=== PATIENT | male | born 2000 | race Caucasian/White ===

== ENCOUNTER 2019-05-05 10:40 | Emergency (ER) | payer OTHER ==
[~2019-05-05] VITALS: Ht 177.8 cm; Wt 52.2 kg
[2019-05-05 10:40] VITALS: BP_SYST 132
== END 2019-05-05 11:02 | disposition left against medical advice (07) ==
LOC: SED 10:40
DX: F41.9 Anxiety disorder, unspecified (principal); F50.2 Bulimia nervosa; R94.31 Abnormal electrocardiogram [ECG] [EKG]
CPT/HCPCS: 99284

== ENCOUNTER 2019-05-14 16:32 | Inpatient (IN) | payer OTHER ==
[~2019-05-14] VITALS: Ht 172.7 cm; Wt 41.7 kg
[2019-05-14 16:45] VITALS: BP_SYST 105
--- NOTE | 2019-05-14 16:45 | NUR ---
Patient to ER bed 8 to gown for evaluation. Side rails up. Report given to JIMMY Elias.
[2019-05-14] MEDS ORDERED: NACL 0.9% 1,000 ML IV ONE (16:56)
--- NOTE | 2019-05-14 17:00 | NUR ---
patient arrived AOx4 with c/o not eating. patient states he hasn't eaten since 04/30. patient was 130 and is less than 100. patient saw a mental health doctor on thursday. patient has a history of mental health for depression and anxiety. patient stated he was telling himself he was eating gross food and then he stopped eating. patient has no known history of eating disorder. patient denies drug use. however, patient has a history of smoking marijuana. no other complaint or injury.
--- NOTE | 2019-05-14 17:00 | NUR ---
md BRENDA Perez at bedside examining patient.
--- NOTE | 2019-05-14 17:18 | NUR ---
# 20 gauge angiocath placed to right forearm. Use of asceptic technique. Opsite placed over site. Blood return noted. Blood for lab drawn from site. Flushed with 10 cc of normal saline. No evidence of infiltration noted. Patient tolerated well.
--- NOTE | 2019-05-14 17:20 | NUR ---
Medicated per MD orders. IVF infusing with no s/s of infiltration at this time. Will cont to monitor
[2019-05-14 17:32] LABS: BILIRUBIN,URINE NEGATIVE (NEGATIVE); BLOOD, URINE NEGATIVE (NEGATIVE); CLARITY/URINE CLEAR (CLEAR); COLOR,URINE YELLOW (YELLOW); GLUCOSE,URINE NEGATIVE (NEGATIVE); KETONES,URINE NEGATIVE (NEGATIVE); LEUKOCYTE ESTERASE ,URINE NEGATIVE (NEGATIVE); NITRITE, URINE NEGATIVE (NEGATIVE); PROTEIN URINE NEGATIVE (NEGATIVE); UROBILINOGEN,URINE 0.2 (0.2-1.0)
[2019-05-14 18:07] LABS: HEMATOCRIT 45.6 % (36-54); HEMOGLOBIN 15.2 g/dL (14.0-18.0); MEAN CORPUSCULAR HEMOGLOBIN 29 pg (27-31); MEAN CORPUSCULAR HGB CONC 33 % (32-36); MEAN CORPUSCULAR VOLUME 88 fL (79.0-98.0); PLATELET COUNT (AUTO) 206 K/uL (130-430); RED BLOOD CELL COUNT(AUTO) 5.18 MIL/uL (4.2-6.2); RED CELL DISTRIBUTION WIDTH 13.5 % (9.0-15.0); WHITE BLOOD COUNT (AUTO) 17.2 K/uL (4.5-11.0)
[2019-05-14 18:18] LABS: CALCIUM 8.2 mg/dL (8.4-11.0); CREATININE 0.8 mg/dL (0.55-1.30); POTASSIUM 4.3 mmol/L (3.5-5.1)
[2019-05-14 18:22] LABS: ALBUMIN 3.5 g/dL (3.4-4.8); TOTAL BILIRUBIN 1.7 mg/dL (0.0-1.0)
[2019-05-14 18:29] LABS: BARBITURATE, URINE NEGATIVE (NEG <=200); BENZODIAZEPINE, URINE POSITIVE (NEG <=150); CANNABINOID, URINE POSITIVE (NEG <=50); COCAINE, URINE NEGATIVE (NEG <=150); METHAMPHETAMINES SCREEN,URINE NEGATIVE (NEG <=500); OPIATE, URINE NEGATIVE (NEG <=100); PHENCYCLIDINE SCREEN,URINE NEGATIVE (NEG <=25); UR TRICYCLIC ANTIDEPRESSANTS NEGATIVE (NEG <=300); URINE AMPHETAMINE NEGATIVE (NEG <=500); URINE METHADONE NEGATIVE (NEG <=200); URINE OXYCODONE SCREEN NEGATIVE (NEG <=100); URINE PROPOXYPHENE SCREEN NEGATIVE (NEG <=300)
[2019-05-14 18:31] LABS: BAND % (MANUAL) 9 % (0-6); BASOPHILS % (MANUAL) 0 % (0-2); EOSINOPHILS % (MANUAL) 0 % (0-7); LYMPHOCYTES % (MANUAL) 7 % (20-46); MONOCYTES % (MANUAL) 7 % (0-11)
[2019-05-14] MEDS ORDERED: ALPR1TAB2 PO (18:40)
[2019-05-14] MEDS ORDERED: NACL 0.9% 2,000 ML IV ONE (18:45)
[2019-05-14] MEDS ORDERED: FOLIC ACID 1 MG, THIAMINE HCL 100 MG, MAGNESIUM SULFATE 1 GM, MVI 10 ML in NACL 0.9% 1,... IV ONE (18:45)
[2019-05-14] MEDS ORDERED: MAGNESIUM SULFATE 1 GM/2 ML VIAL ONE (19:07)
[2019-05-14] MEDS ORDERED: THIAMINE HCL 100 MG/ML VIAL ONE (19:07)
[2019-05-14] MEDS ORDERED: FOLIC ACID 5 MG/ML VIAL IV ONE (19:07)
[2019-05-14] MEDS ORDERED: LEVOFLOXACIN 500 MG/D5W 100 ML IV ONE (19:15)
--- NOTE | 2019-05-14 19:38 | NUR ---
# 18 gauge angiocath placed to LT AC. Use of asceptic technique. Opsite placed over site. Blood return noted. Blood for lab drawn from site. Flushed with 10 cc of normal saline. No evidence of infiltration noted. Patient tolerated well.
--- NOTE | 2019-05-14 19:46 | NUR ---
Patient will be admitted to care [facility]. Admitted to Med/Surg unit. Will go to room 125B. Belongings list completed. Summary report printed. Report will be given at bedside.
--- NOTE | 2019-05-14 19:52 | NUR ---
ADMIT NOTE Received pt from ER to the floor with a diagnosis of DEHYDRATION AND POSSIBLE SEPSIS. Admission process initiated. patient oriented to pain management, safety and call light-teach back done.
--- NOTE | 2019-05-14 20:00 | NUR ---
INITIAL NOTE AT INITIAL ASSESSMENT, PATIENT IS RESTING IN BED, STABLE, NO SIGNS OF RESPIRATORY DISTRESS. PATIENT VERBALIZES NO PAIN. FAMILY IS AT BEDSIDE. PLAN OF CARE FOR THE EVENING IS COMMUNICATED WITH THE PATIENT AND HIS FAMILY. PATIENT DEMONSTRATES CORRECT USAGE OF CALL LIGHT AT THIS TIME. BED IS LOCKED, ALARMED, AND AT THE LOWEST LEVEL. FALL, SAFETY, AND ASPIRATION PRECAUTIONS WILL BE TAKEN THROUGHOUT THE SHIFT.
[2019-05-14 20:02] VITALS: BP_SYST 117
--- NOTE | 2019-05-14 20:15 | NUR ---
DR. RAJAN ROUNDS DR. RAJAN IS AT BEDSIDE AT THIS TIME MAKING ROUNDS, HE IS SPEAKING TO THE PATIENT HAS HIS FAMILY AT BEDSIDE.
[2019-05-14 20:26] VITALS: BP_SYST 117
[2019-05-14] MEDS ORDERED: KCL 20 mEq in D5NS 1000 mL 1,000 ML IV ONE (20:38)
[2019-05-14] MEDS: ONDANSETRON HCL 4 MG/2 ML VIAL IVP PRN (21:23)
[2019-05-14] MEDS: KCL 20 mEq in D5NS 1000 mL 1,000 ML IV SCH (21:27)
--- NOTE | 2019-05-14 22:54 | NUR ---
CONSULTATION PAGED/CALLED Reason for Consultation: DEPRESSION Person Who was Notified: ABISAI Consulting Physician: DOCTOR PAULIE SIMMONS IS PERINATAL TECHNICIAN Clinical Dental Technician Specialty: Ordering Physician: SATINDER
[2019-05-15 00:24] VITALS: BP_SYST 115
[2019-05-15] MEDS: KCL 20 mEq in D5NS 1000 mL 1,000 ML IV SCH ×3 (03:11→15:44)
[2019-05-15] MEDS: ONDANSETRON HCL 4 MG/2 ML VIAL IVP PRN (03:52)
[2019-05-15 04:28] LABS: BASOPHILS % (AUTO) 0.2 % (0.0-2.0); HEMATOCRIT 46.7 % (36-54); HEMOGLOBIN 15.9 g/dL (14.0-18.0); LYMPHOCYTES # (AUTO) 2.3 K/uL (1.0-5.5); LYMPHOCYTES % (AUTO) 12.9 % (20.5-51.5); MEAN CORPUSCULAR HEMOGLOBIN 30 pg (27-31); MEAN CORPUSCULAR HGB CONC 34 % (32-36); MEAN CORPUSCULAR VOLUME 88 fL (79.0-98.0); MONOCYTES # (AUTO) 1.2 K/uL (0.0-1.0); MONOCYTES % (AUTO) 6.9 % (1.7-9.3); NEUTROPHILS # (AUTO) 14.2 K/uL (1.8-7.7); PLATELET COUNT (AUTO) 196 K/uL (130-430); RED CELL DISTRIBUTION WIDTH 13.9 % (9.0-15.0); WHITE BLOOD COUNT (AUTO) 17.8 K/uL (4.5-11.0)
[2019-05-15 04:44] LABS: CALCIUM 7.7 mg/dL (8.4-11.0); CREATININE 0.86 mg/dL (0.55-1.30); PHOSPHORUS 4.4 mg/dL (2.7-4.5); POTASSIUM 4.3 mmol/L (3.5-5.1)
--- NOTE | 2019-05-15 05:30 | NUR ---
COMMUNICATION WITH DR. SATINDER RAJAN HAS PAGED BACK AT THIS TIME, REQUEST FOR PRN MEDICATION FOR PAIN WAS DENIED. DENIED ORDER VERIFIED AND WILL BE COMMUNICATED TO AM NURSE.
--- NOTE | 2019-05-15 06:30 | NUR ---
DR. SIMMONS ROUNDS DR. STEELE IS MAKING ROUND AT THIS TIME, HE HAS SEEN THE PATIENT. NEW ORDERS RECEIVED. ORDERS READ BACK, VERIFIED, AND ENTERED.
--- NOTE | 2019-05-15 07:20 | NUR ---
Seen and examined by Dr. Butcher psychiatrist , patient denies any suicidal ideation ,low mood but cooperative complaining of epigastric pain according to patient his not eating for 2 weeks on hydration , paged Dr. Sanchez at 0730 hour , family member at the bedside.
--- NOTE | 2019-05-15 07:27 | NUR ---
CLOSING NOTE PATIENT REFUSED TO EAT DESPITE EDUCATIONAL EFFORTS THROUGHOUT THE SHIFT. HE HAS BEEN NPO SINCE MIDNIGHT FOR HIS AM ABDOMINAL ULTRASOUND. AT THIS TIME, PATIENT IS RESTING IN BED, STABLE, NO SIGNS OF RESPIRATORY DISTRESS. CALL LIGHT IS WITHIN REACH. BED IS LOCKED, ALARMED, AND AT THE LOWEST LEVEL. FALL AND SAFETY PRECAUTIONS HAVE BEEN IN PLACE THROUGHOUT THE SHIFT. WILL CONTINUE TO MONITOR UNTIL SHIFT REPORT IS GIVEN AT BEDSIDE TO AM NURSE.
[2019-05-15 07:38] VITALS: BP_SYST 120
[2019-05-15] MEDS ORDERED: ONDANSETRON HCL 4 MG/2 ML VIAL IVP PRN (08:15)
[2019-05-15] MEDS: PANTOPRAZOLE SODIUM 40 MG/VIAL (PROTONIX) IVP SCH (08:18)
[2019-05-15] MEDS: MAG-AL HYDROX/SIMETH 30 ML UDC PO PRN (08:18)
--- NOTE | 2019-05-15 08:20 | NUR ---
Mobility Ambulate with steady gait no dizziness stand bye assist for safety.
--- NOTE | 2019-05-15 09:00 | NUR ---
Abdominal ultrasound completed , breakfast served no animal product as requested , poor appetite refused to eat , on hydration , epigastric discomfort much better , taking a nap, mother at the bedside.
[2019-05-15 12:26] VITALS: BP_SYST 111
--- NOTE | 2019-05-15 12:38 | NUR ---
Seen and examined by DR. Sanchez , lunch served ,I asked the patient are u not feeling hungry? he said its in my mind that i dnt want to eat, denies epigastric pain or nausea,explained to patient small frequent meal, in between snacks offered,patient only smile and say thank you ,mother at the bedside ,on IV hydration .
--- NOTE | 2019-05-15 15:40 | NUR ---
Rounds Patient watching TV denies any epigastric pain ,mood is much better compare in the morning, dietary staff brought list of food for selection of what kind of food patient may like,family and patient really appreciate the effort from the hospital staff.
[2019-05-15 15:48] VITALS: BP_SYST 115
--- NOTE | 2019-05-15 18:49 | NUR ---
Patient didn't eat anything from dinner tray, offered choices of food but refused, on IV fluid for hydration, will monitor., father at the bedside.
[2019-05-15 19:55] VITALS: BP_SYST 116
--- NOTE | 2019-05-15 19:55 | NUR ---
INITIAL NOTE AT INITIAL ASSESSMENT, PATIENT IS RESTING IN BED, STABLE, NO SIGNS OF RESPIRATORY DISTRESS. PATIENT VERBALIZES NO PAIN. FATHER IS AT BEDSIDE. PLAN OF CARE FOR THE EVENING IS COMMUNICATED WITH THE PATIENT AND HIS FAMILY. PATIENT DEMONSTRATES CORRECT USAGE OF CALL LIGHT AT THIS TIME. BED IS LOCKED, ALARMED, AND AT THE LOWEST LEVEL. FALL, SAFETY, AND ASPIRATION PRECAUTIONS WILL BE TAKEN THROUGHOUT THE SHIFT.
[2019-05-15] MEDS: MIRTAZAPINE 15 MG TABLET PO SCH (21:05)
--- NOTE | 2019-05-15 21:55 | NUR ---
NOTE PATIENT IS RESTING IN BED, STABLE, NO SIGNS OF RESPIRATORY DISTRESS. FATHER IS AT BEDSIDE. PATIENT IS REFUSING ALL FOOD OFFERED AT THIS TIME, WILL CONTINUE TO ENCOURAGE. CALL LIGHT IS WITHIN REACH. BED IS LOCKED, ALARMED, AND AT THE LOWEST LEVEL.
[2019-05-16 00:25] VITALS: BP_SYST 118
--- NOTE | 2019-05-16 01:55 | NUR ---
NOTE PATIENT IS SLEEPING, STABLE, NO SIGNS OF RESPIRATORY DISTRESS. FATHER IS AT BEDSIDE. PATIENT IS REFUSING ALL FOOD OFFERED AT THIS TIME, WILL CONTINUE TO ENCOURAGE. CALL LIGHT IS WITHIN REACH. BED IS LOCKED, ALARMED, AND AT THE LOWEST LEVEL.
[2019-05-16] MEDS: KCL 20 mEq in D5NS 1000 mL 1,000 ML IV SCH ×3 (05:04→17:04)
[2019-05-16 06:24] LABS: BASOPHILS % (AUTO) 0.1 % (0.0-2.0); EOSINOPHILS % (AUTO) 0.1 % (0.0-4.0); HEMOGLOBIN 15.4 g/dL (14.0-18.0); LYMPHOCYTES % (AUTO) 7.1 % (20.5-51.5); MEAN CORPUSCULAR HEMOGLOBIN 30 pg (27-31); MEAN CORPUSCULAR HGB CONC 34 % (32-36); MEAN CORPUSCULAR VOLUME 88 fL (79.0-98.0); MONOCYTES # (AUTO) 0.9 K/uL (0.0-1.0); MONOCYTES % (AUTO) 6.4 % (1.7-9.3); NEUTROPHILS % (AUTO) 86.3 % (40.0-70.0); PLATELET COUNT (AUTO) 172 K/uL (130-430); RED BLOOD CELL COUNT(AUTO) 5.15 MIL/uL (4.2-6.2); WHITE BLOOD COUNT (AUTO) 13.9 K/uL (4.5-11.0)
--- NOTE | 2019-05-16 06:45 | NUR ---
CLOSING NOTE PATIENT REFUSED TO EAT THROUGHOUT THE NIGHT DESPITE MANY EDUCATIONAL EFFORTS. AT THIS TIME, PATIENT IS RESTING IN BED, STABLE, NO SIGNS OF RESPIRATORY DISTRESS. CALL LIGHT IS WITHIN REACH. BED IS LOCKED, ALARMED, AND AT THE LOWEST LEVEL. FALL AND SAFETY PRECAUTIONS HAVE BEEN IN PLACE THROUGHOUT THE SHIFT. WILL CONTINUE TO MONITOR UNTIL SHIFT REPORT IS GIVEN AT BEDSIDE TO AM NURSE.
--- NOTE | 2019-05-16 06:55 | NUR ---
Nutrition Update Artur Scale 18 noted. Pt admitted for Dehydration and Possible Sepsis Diet: Regular BMI: 14 kg/m2 RD to follow per nutrition care standards.
[2019-05-16 08:00] VITALS: BP_SYST 122
--- NOTE | 2019-05-16 08:00 | NUR ---
initial notes rec patient awake alert with hob elevated . denies any pain. resp easy and unlabored. no sob noted. bed to the lowest position and side rails up and locked. call light within reached and knows when to call for assistance. will continue to monitor patient.
--- NOTE | 2019-05-16 10:30 | NUR ---
rounds mom at bedside with the patient. resting comfortably. no sob noted.
[2019-05-16 11:20] VITALS: BP_SYST 144
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
[2019-05-16] MEDS: PANTOPRAZOLE SODIUM 40 MG/VIAL (PROTONIX) IVP SCH (11:43)
[2019-05-16 12:07] LABS: HEPATITIS A AB, IgM Negative (Negative); HEPATITIS B CORE AB, IgM Negative (Negative); HEPATITIS B SURFACE AG Negative (Negative)
--- NOTE | 2019-05-16 12:17 | NUR ---
DIRECTOR EXPORT called [facility] in [address] [address] ., ([phone]) DIRECTOR EXPORT left a message with the intake dept. for the Eating Disorder Admissions Line. DIRECTOR EXPORT will follow up. later today.
--- NOTE | 2019-05-16 13:30 | NUR ---
rounds seen by dr hernandez at bedside with orders.
--- NOTE | 2019-05-16 14:00 | NUR ---
rounds resting in bed. no osb noted. call light within reached.
[2019-05-16 15:08] VITALS: BP_SYST 103
[2019-05-16] MEDS: MAG-AL HYDROX/SIMETH 30 ML UDC PO PRN ×2 (15:10→21:20)
--- NOTE | 2019-05-16 16:00 | NUR ---
rounds ambulated on the haalway with mom and abhishek well. no sob noted.
--- NOTE | 2019-05-16 16:51 | NUR ---
Dietitian Recommendations *Continue Regular Diet, Ensure Clear TID *Recommend d/c banana flakes daily *Encourage PO and fluid intake as tolerated *[place] food preferences. Please see Nutrition Assessment for further details. LT, RD
--- NOTE | 2019-05-16 19:56 | NUR ---
OPENING NOTES Pt and endorsement received from day shift nurse. Pt is AAOx4, lying in bed. Pt on IVF of D5NS with 20 mEq KCL at 125ml/hr and infusing well on right forearm G20 and pt on saline lock on left forearm G18. No complains of pain at this time. No signs of acute distress or SOB noted. Family at bedside. Encouraged to use call light when needed. Safety precautions in place with 3 side rails up, wheels locked, bed in lowest level. Call light with pt. Will continue to monitor.
[2019-05-16 21:17] VITALS: BP_SYST 110
[2019-05-16] MEDS: MIRTAZAPINE 15 MG TABLET PO SCH (21:20)
--- NOTE | 2019-05-16 23:30 | NUR ---
ROUNDS Pt is resting in bed with both eyes closed, with visible chest rise and fall with non-labored breathing noted. No complains of pain and no signs of acute distress noted. IVF infusing well. Father at bedside. Safety precautions in place and call light with pt. Will continue to monitor.
[2019-05-17] MEDS: KCL 20 mEq in D5NS 1000 mL 1,000 ML IV SCH ×2 (01:43→10:28)
[2019-05-17 01:47] VITALS: BP_SYST 101
--- NOTE | 2019-05-17 03:01 | NUR ---
ROUNDS Pt is resting in bed with both eyes closed, with visible chest rise and fall with non-labored breathing noted. Father at bedside. Pt is easily arousable. No signs of acute distress noted. IVF infusing well. No needs at this time. Safety precautions in place and call light with pt. Will continue to monitor.
--- NOTE | 2019-05-17 06:51 | NUR ---
CLOSING NOTES Pt is resting in bed with both eyes closed, with visible chest rise and fall with non-labored breathing noted. IVF infusing well. No complains of pain at this time. No signs of acute distress or SOB noted. Father at bedside. All needs attended throughout the shift. Safety precautions maintained with 3 side rails up, wheels locked, bed in lowest level. Call light with pt. Will endorse to day shift nurse.
--- NOTE | 2019-05-17 07:30 | NUR ---
OPENING NOTES: RECEIVED PATIENT FROM DENTAL ASSOCIATE NURSE. PATIENT IS AWAKE SITTING UP IN A CHAIR. FAMILY AT BEDSIDE. NO SIGNS OF DISTRESS OR SHORTNESS OF BREATH NOTED. PATIENT DENIES ANY PAIN AT THE MOMENT. IV SITE PATENT WITH NO SIGNS OF INFILTRATION. SAFETY PRECAUTIONS ARE IN PLACE. BED LOCKED IN LOWEST POSITION WITH CALL LIGHT IN REACH. WILL CONTINUE TO MONITOR PATIENT FOR ANY CHANGES. Addendum: 05/17/19 at 1419 by Yoselin Barkley RN PT AAOX4, VERBAL, STEADY GAIT, RUNNING IV FLUIDS ORDERED.
[2019-05-17 08:00] VITALS: BP_SYST 126; BP_SYST 97
[2019-05-17] MEDS: PANTOPRAZOLE SODIUM 40 MG/VIAL (PROTONIX) IVP SCH (08:43)
--- NOTE | 2019-05-17 09:44 | NUR ---
MEDICATION REASSESSMENT PT NO LONGER FEELS ANXIOUS, PT IN STABLE CONDITION, PT TALKING TO VISITORS AT BEDSIDE, WILL CONTINUE TO MONITOR PT FOR ANY CHANGES.
--- NOTE | 2019-05-17 09:48 | NUR ---
SID BRANTLEY: SID RAJAN. PATIENT IS HAVING MUSCLE ACHES AND WOULD LIKE MEDICATION FOR IT. AWAITING CALL BACK. Addendum: 05/17/19 at 0954 by Deb Scott RN 09:53- DR. RAJAN CALLED BACK. NEW ORDERS GIVEN.
--- NOTE | 2019-05-17 09:49 | NUR ---
SID BRANTLEY: PAGED DR. STEELE. PATIENT IS WONDERING WHEN HE WILL BE SEEN. AWAITING CALL BACK. Addendum: 05/17/19 at 0954 by Yoselin Barkley RN SPOKE WITH SIM FROM DR STEELE OFFICE, SHE WILL LET HIM KNOW THAT WE PAGED HIM AND AWAITING CALL BACK TO SEE IF HE IS COMING TO SEE THE PT TODAY.
[2019-05-17] MEDS ORDERED: ACETAMINOPHEN 325 MG TABLET PO PRN (10:00)
--- NOTE | 2019-05-17 10:20 | NUR ---
RN ROUNDS: PATIENT IS AWAKE AND BRUSHING HIS TEETH AT THE SINK. PATIENT COMPLAINED OF THE ROOM BEING TOO COLD, SECURITY WAS PAGED TO TURN IT DOWN. PATIENT WAS GIVEN A HEATED BLANKET. NO SIGNS OF SHORTNESS OF BREATH NOTED. IV SITE IS PATENT WITH NO SIGNS OF INFILTRATION. SAFETY PRECAUTIONS ARE IN PLACE. BED LOCKED IN LOWEST POSITION WITH CALL LIGHT IN REACH. WILL CONTINUE TO MONITOR PATIENT FOR ANY CHANGES.
--- NOTE | 2019-05-17 11:16 | NUR ---
Director Geothermal Operations Note Patient requested to meet with HAIRSPRING ASSEMBLER. Met with patient and father at bedside. Patient's father stated he had phoned [facility] and they requested patient's information be faxed there. Patient would like to go there voluntarily as an inpatient and it was recommended by Dr Shipley. [facility] will fax patient's information, p [phone] f [phone]. Addendum: 05/17/19 at 1158 by Liudmila Baptiste LCSW Spoke with Donato at [facility]. They received the fax. Patient can go over for voluntary admission any time and they will assess. Informed patient and father. Father just met with Dr Navas who recommended a program with eating disorder treatment. Patient does not want [facility], as recommended yesterday. They will discuss possibilities and notify [facility] to facilitate. Addendum: 05/17/19 at 1429 by Liudmila Baptiste LCSW Spoke with patient and father again. They wanted assistance in finding a clinic. Phoned multiple facilities. Tea at [facility] stressed again that they do not have an eating disorder program. She recommended trying [facility], and [facility] in [place]. Called [facility], no longer have an eating disorder program. Recommended multiple choices, none close by. Phoned [facility]. They only have an outpatient program. Highly recommended [facility], , day program. They can conduct a phone intake. Brought info to patient who stated he was aware of the program and was interested. He plans to call for possible intake. Patient would like to go home today. Notified Yoselin MARQUEZ who will contact Dr Sanchez. Patient may not be medically cleared for discharge today. Director Geothermal Operations will remain available upon request. Addendum: 05/17/19 at 1649 by Liudmila Baptiste LCSW Now patient and family state they think [facility] inpatient will be the best for patient. Stated they did not get the intake call at 10am. Provided the phone number, , and told them patient's info had bee faxed yesterday. Mother stated she was already in contact with the nursing information systems coordinator. Expect possible discharge home order today. If needed, Director Geothermal Operations will follow up tomorrow.
[2019-05-17 11:24] VITALS: BP_SYST 113
--- NOTE | 2019-05-17 11:34 | NUR ---
MD ROUNDS: DR. APODACA PSYCH MAKING ROUNDS. AWARE OF PATIENTS CONDITION.
--- NOTE | 2019-05-17 12:30 | NUR ---
RN ROUNDS: PATIENT IS AWAKE SITTING IN BED. PATIENT REFUSED TO EAT HIS LUNCH DUE TO IT BEING THE WRONG FOOD. HE REFUSED MY OFFER TO CALL DIETARY TO SEE IF THEY CAN BRING HIS CORRECT TRAY. NO SIGNS OF SHORTNESS OF BREATH NOTED. IV SITE IS PATENT WITH NO SIGNS OF INFILTRATION. SAFETY PRECAUTIONS ARE IN PLACE. BED IS LOCKED IN LOWEST POSITION WITH CALL LIGHT IN REACH. WILL CONTINUE TO MONITOR PATIENT FOR ANY CHANGES.
--- NOTE | 2019-05-17 13:42 | NUR ---
ROUNDS DR SATINDER MOREAU, AWARE OF PATIENT'S CONDITION. Addendum: 05/17/19 at 1418 by Yoselin Barkley RN MADE AWARE THAT PT REFUSED BREAKFAST AND LUNCH
--- NOTE | 2019-05-17 14:11 | NUR ---
RN ROUNDS: PATIENT IS AWAKE SITTING IN BED. FAMILY AT BEDSIDE. PATIENT STATES HE WANTS TO GET DISCHARGED. NO SIGNS OF DISTRESS OR SHORTNESS OF BREATH NOTED. IV SITE IS PATENT WITH NO SIGNS OF INFILTRATION. SAFETY PRECAUTIONS ARE IN PLACE. BED LOCKED IN LOWEST POSITION WITH CALL LIGHT IN REACH. WILL CONTINUE TO MONITOR PATIENT FOR ANY CHANGES.
--- NOTE | 2019-05-17 14:27 | NUR ---
MEDICATION REASSESSMENT PT NO LONGER FEELS ANXIOUS, PT IN STABLE CONDITION, PT TALKING TO VISITORS AT BEDSIDE, WILL CONTINUE TO MONITOR PT FOR ANY CHANGES.
--- NOTE | 2019-05-17 14:45 | NUR ---
CALL SPOKE WITH DR RAJAN IN REGARDS TO D/C OF PT TODAY HOME AND TO FOLLOW UP WITH [facility]. NEW ORDERS GIVEN BEFORE D/C FOR LABS. Addendum: 05/17/19 at 1540 by Yoselin Barkley RN SPOKE WITH DR RAJAN AND HE WAS MADE AWARE OF RESULTS OF CBC AND CMP, PER MD TO D/C PT HOME TODAY AND HAVE HIM FOLLOW UP WITH PCP IN ONE WEEK AND [facility] HE TALKED ABOUT WITH ASSISTANT FOOD SERVICE DIRECTOR.
[2019-05-17 15:06] LABS: BASOPHILS % (AUTO) 0.1 % (0.0-2.0); EOSINOPHILS % (AUTO) 0.1 % (0.0-4.0); HEMATOCRIT 49.2 % (36-54); HEMOGLOBIN 16.4 g/dL (14.0-18.0); LYMPHOCYTES # (AUTO) 1.4 K/uL (1.0-5.5); LYMPHOCYTES % (AUTO) 8.2 % (20.5-51.5); MEAN CORPUSCULAR HEMOGLOBIN 30 pg (27-31); MEAN CORPUSCULAR HGB CONC 33 % (32-36); MEAN CORPUSCULAR VOLUME 89 fL (79.0-98.0); MONOCYTES # (AUTO) 0.8 K/uL (0.0-1.0); MONOCYTES % (AUTO) 4.7 % (1.7-9.3); NEUTROPHILS # (AUTO) 14.3 K/uL (1.8-7.7); PLATELET COUNT (AUTO) 163 K/uL (130-430); RED BLOOD CELL COUNT(AUTO) 5.53 MIL/uL (4.2-6.2); RED CELL DISTRIBUTION WIDTH 13.9 % (9.0-15.0); WHITE BLOOD COUNT (AUTO) 16.5 K/uL (4.5-11.0)
[2019-05-17 15:22] LABS: ALBUMIN 3.7 g/dL (3.4-4.8); CALCIUM 8.3 mg/dL (8.4-11.0); CREATININE 0.53 mg/dL (0.55-1.30); TOTAL BILIRUBIN 2.2 mg/dL (0.0-1.0)
[2019-05-17 15:27] VITALS: BP_SYST 110
[2019-05-17 15:36] LABS: NEUTROPHILS % (AUTO) 86.9 % (40.0-70.0)
--- NOTE | 2019-05-17 16:05 | NUR ---
RN ROUNDS: PATIENT IS WALKING THE HALLS WITH HIS FAMILY. NO SIGNS OF DISTRESS OR SHORTNESS OF BREATH NOTED. IV SITE IS PATENT WITH NO SIGNS OF INFILTRATION. WILL CONTINUE TO MONITOR PATIENT FOR ANY CHANGES.
[2019-05-17 18:09] VITALS: BP_SYST 108
--- NOTE | 2019-05-17 18:45 | NUR ---
D/C Patient Patient given medication reconciliation form and D/C instructions. Exit Care provided. Patient verbalized understanding. MD discussed with patient the results and treatment provided. Ambulatory with steady gait for discharge to home. Patient in stable condition, ID band removed. IV catheter removed, intact and dressing applied, no active bleeding. Patient educated on pain management. All belongings sent with patient. Patient was provided with outpatient treatment centers numbers and list per social director.
--- NOTE | 2019-05-18 10:21 | NUR ---
SS Note: ERGONOMICS CONSULTANT received voicemail from Dr. Kyra Amaro from [facility] @ [phone] regarding pt's possible transfer to an medical-behavioral unit. Pt is discharged. ERGONOMICS CONSULTANT phoned Dr. Amaro back and left a message about the plan for the patient or the mother to call [facility] to arrange for an appointment in their eating disorder unit; which the mom agreed to do.
--- NOTE | 2019-05-19 08:47 | NUR ---
SS Note/discharge follow up: RUNWAY MODEL received a call from Nury Mcfarland @ [phone], pt's mother regarding confusion on patient's voluntary admission on the eating disorder unit. Nury verbalized concern about pt not getting treatment by the weekend, Nury stated since discharge, pt has not eaten anything and only drinks water. RUNWAY MODEL phoned [facility] @ [phone] and spoke with Deb, who stated [facility] is denying patient's admission due to acuity. Deb stated pt needs a medical/behavioral unit which [facility] cannot accommodate and that the patient is at risk for "receding syndrome". Deb recommended [facility] with Dr. Mirela Thakkar and Dr. Davida Ng @ [phone] or [facility] in [place] @ [phone]. RUNWAY MODEL spoke with an RN from [facility] who states that they have bed availability, the patient just needs to go through the intake with Dr. Thakkar. RUNWAY MODEL provided phone information for [facility] and [facility] to patient's father, Ted Cheatham @ [phone] and encouraged family to call SS if any questions or concerns arise, or if they need help with providing patient with clinicals. SS will remain available and follow up as needed.
--- NOTE | 2019-05-19 11:40 | NUR ---
[employer] received a call from Liz Obregon (p: [phone], f: [phone]) of [facility] Medical Records for Dr. Thakkar's eating disorder unit, requesting for patient's clinicals to be faxed over. Per Liz, patient's father Ted ([employer] confirmed with father) had made contact with them regarding patient wanting to voluntarily admit to their facility. Clinicals faxed, approved by Laura of Admin. Addendum: 05/19/19 at 1522 by Soraida Kwan [employer] received a call from father, Ted who stated that [facility] is unable to accommodate patient in their unit. Pt was [facility] Pt's father Ted will contact the other facilities provided. [employer] informed Ted of [facility] in [place], but stated "its too far". SS will remain available when needed.
== END 2019-05-17 18:45 | disposition home or self-care (01) | DRG 641 ==
LOC: SED 16:32 → SMU 19:11
PROVIDERS: ADMIT Family Medicine; ATTEND Family Medicine
DX: E86.0 Dehydration (principal); F32.9 Major depressive disorder, single episode, unspecified; E87.1 Hypo-osmolality and hyponatremia; D72.829 Elevated white blood cell count, unspecified; F12.90 Cannabis use, unspecified, uncomplicated; F41.9 Anxiety disorder, unspecified; F50.9 Eating disorder, unspecified; Z90.89 Acquired absence of other organs; Z79.899 Other long term (current) drug therapy
CPT/HCPCS: 36415; 71045; 74018; 76700-TC; 80048; 80053; 80307; 81003; 83605; 83690-TC; 83735-TC; 84100-TC; 85007; 85025; 85027; 86705; 86709; 87040-TC; 87340; 96361; 96365; 96366; 96368; 99285; C9113; J1956; J2405; J3411; J3475; J3490

== ENCOUNTER 2021-07-23 15:22 | Inpatient (IN) | payer BC, SELFPAY ==
[~2021-07-23] VITALS: Ht 172.7 cm; Wt 63.5 kg
[~2021-07-23 15:22] MED LIST: ALPR1TAB2 PO
[2021-07-23 15:24] VITALS: BP_SYST 132
--- NOTE | 2021-07-23 15:28 | NUR ---
Patient triaged and placed in waiting room. VSS and patient appears in no acute distress at this time. Accompanied by self, awaiting available bed, and MD notified of need for MSE.
--- NOTE | 2021-07-23 15:50 | NUR ---
ER DR. MEDINA AT THE BEDSIDE EXAMINING PT
--- NOTE | 2021-07-23 16:00 | NUR ---
Placed in room 1 . Placed on panel monitor, blood pressure machine and pulse oximeter. To gown for exam. Side rails up.
--- NOTE | 2021-07-23 16:05 | NUR ---
PT BROUGHT SELF TO ER C/O LEFT SIDED CHEST PAIN STARTING LAST NIGHT. REPORTS A BURNING SENSATION SUDDENLY LAST NIGHT THAT HAS NOT GONE AWAY WITH PAIN LAYING DOWN OR TAKING A DEEP BREATH. PT DENIES ANY TRAUMA OR INJURY. STATES HE USES A MARIJUANA VAPE DAILY. DENIES MEDICAL HX. PT IS AMBULATORY, AAOX4, V/S STABLE, ANXIOUS.
--- NOTE | 2021-07-23 16:15 | NUR ---
# 20 gauge angiocath placed to RAC. Use of asceptic technique. Opsite placed over site. Blood return noted. Blood for lab drawn from site. Flushed with 10 cc of normal saline. No evidence of infiltration noted. Patient tolerated well.
[2021-07-23] MEDS ORDERED: NACL 0.9% 1,000 ML IV ONE (17:00)
[2021-07-23 17:07] LABS: BASOPHILS # (AUTO) 0.1 K/uL (0.0-0.2); RED BLOOD CELL COUNT(AUTO) 5.49 MIL/uL (4.2-6.2)
[2021-07-23 17:08] LABS: CALCIUM 9.1 mg/dL (8.4-11.0); CREATININE 0.92 mg/dL (0.55-1.30); POTASSIUM 3.6 mmol/L (3.5-5.1)
[2021-07-23 17:13] LABS: ALBUMIN 4.6 g/dL (3.4-4.8); TOTAL BILIRUBIN 0.4 mg/dL (0.0-1.0)
[2021-07-23 17:25] LABS: BASOPHILS % (AUTO) 0.9 % (0.0-2.0); EOSINOPHILS # (AUTO) 0.1 K/uL (0.0-0.4); EOSINOPHILS % (AUTO) 1.5 % (0.0-4.0); HEMATOCRIT 45.9 % (36-54); HEMOGLOBIN 15.9 g/dL (14.0-18.0); LYMPHOCYTES # (AUTO) 2.4 K/uL (1.0-5.5); LYMPHOCYTES % (AUTO) 25.1 % (20.5-51.5); MEAN CORPUSCULAR HEMOGLOBIN 29 pg (27-31); MEAN CORPUSCULAR HGB CONC 35 % (32-36); MEAN CORPUSCULAR VOLUME 84 fL (79.0-98.0); MONOCYTES # (AUTO) 0.8 K/uL (0.0-1.0); MONOCYTES % (AUTO) 8.1 % (1.7-9.3); NEUTROPHILS # (AUTO) 6.2 K/uL (1.8-7.7); NEUTROPHILS % (AUTO) 64.4 % (40.0-70.0); PLATELET COUNT (AUTO) 268 K/uL (130-430); RED CELL DISTRIBUTION WIDTH 13.4 % (9.0-15.0); WHITE BLOOD COUNT (AUTO) 9.6 K/uL (4.8-10.8)
[2021-07-23] MEDS ORDERED: LIDOCAINE 1% 10 MG/ML, 20 ML MDV SUBCUT ONE (17:45)
[2021-07-23] MEDS ORDERED: LORazepam 2 MG/ML VIAL IVP ONE (17:45)
[2021-07-23] MEDS ORDERED: MORPHINE 4 MG INJ. 4 MG/ML VIAL IVP ONE ×3 (18:15→19:30)
--- NOTE | 2021-07-23 18:50 | NUR ---
ER DR. MEDINA AT THE BEDSIDE FOR URESIL CHEST TUBE PLACEMENT. PT TOLERATED WELL
--- NOTE | 2021-07-23 19:14 | NUR ---
PORTABLE X-RAY AT THE BEDSIDE
--- NOTE | 2021-07-23 19:16 | NUR ---
REPORT GIVEN TO JIMMY MEDRANO FOR CONTINUING CARE
--- NOTE | 2021-07-23 19:37 | NUR ---
Patient will be admitted to care of DR NOVAK. Admitted to TELE unit. Will go to room TBD. Belongings list completed. Complete and up to date summary report printed. SBAR report to be given at bedside with opportunity for questions.
[2021-07-23] MEDS ORDERED: MORPHINE 4 MG INJ. 4 MG/ML VIAL IVP PRN (19:45)
[2021-07-23] MEDS ORDERED: MORPHINE 2 MG/ML INJ. SYRINGE IVP PRN (19:45)
[2021-07-23] MEDS ORDERED: LEVO2.5S8 PO (21:02)
[2021-07-23] MEDS ORDERED: PSEU120T57 PO (21:02)
--- NOTE | 2021-07-23 21:02 | NUR ---
BELONGIGS LIST COMPLETE
--- NOTE | 2021-07-23 21:02 | NUR ---
PT IS FULL CODE
--- NOTE | 2021-07-23 21:02 | NUR ---
Medication reconciliation completed with information provided by PATIENT. Any prior medication reconciliation on file was reviewed and corrected.
--- NOTE | 2021-07-23 21:03 | NUR ---
Transfer to 118A via ACLS protocol. Licensed nurse present. IV present no signs or symptoms of infiltration.
[2021-07-23 21:31] VITALS: BP_SYST 133
[2021-07-23 21:32] VITALS: BP_SYST 133
[2021-07-23 23:55] VITALS: BP_SYST 123
--- NOTE | 2021-07-24 03:03 | NUR ---
THIS IS AN ADMISSION NOTE FOR A [age] YEAR OLD MALE PATIENT OF DOCTOR MUNIZ FOR LEFT PNEUMOTHORAX. PATIENT EXPERIENCES FREQUENT CHEST PAIN WITH MOVEMENT AND WHEN LYING ON HIS SIDE. HE HAS HAD A THORACIC VENT PLACEMENT BY PHYSICIAN IN THE EMERGENCY DEPARTMENT ON 07/23/21 AFTER EXPERIENCING A FEW DAYS OF PAIN AT HOME WHERE HE PLANS TO DISCHARGE TO VIA HIS OWN AUTOMOBILE HERE AT [facility]. WAYNE TONEY RN
[2021-07-24 06:59] LABS: BASOPHILS # (AUTO) 0.1 K/uL (0.0-0.2); BASOPHILS % (AUTO) 0.6 % (0.0-2.0); EOSINOPHILS # (AUTO) 0.2 K/uL (0.0-0.4); EOSINOPHILS % (AUTO) 2.1 % (0.0-4.0); HEMATOCRIT 46.7 % (36-54); HEMOGLOBIN 15.8 g/dL (14.0-18.0); LYMPHOCYTES # (AUTO) 2.7 K/uL (1.0-5.5); LYMPHOCYTES % (AUTO) 27.3 % (20.5-51.5); MEAN CORPUSCULAR HEMOGLOBIN 28 pg (27-31); MEAN CORPUSCULAR HGB CONC 34 % (32-36); MEAN CORPUSCULAR VOLUME 84 fL (79.0-98.0); MONOCYTES # (AUTO) 0.8 K/uL (0.0-1.0); PLATELET COUNT (AUTO) 248 K/uL (130-430); RED BLOOD CELL COUNT(AUTO) 5.55 MIL/uL (4.2-6.2); RED CELL DISTRIBUTION WIDTH 13.4 % (9.0-15.0); WHITE BLOOD COUNT (AUTO) 9.7 K/uL (4.8-10.8)
--- NOTE | 2021-07-24 07:27 | NUR ---
Handoff with JIMMY Guzman. Amado Churchill RN
[2021-07-24 08:00] VITALS: BP_SYST 125
--- NOTE | 2021-07-24 08:00 | NUR ---
OPENING NOTES AWAKE AND ORIENTED. ON 2LITERS OF OXYGEN SUPPORT VIA NASAL CANNULA. DENIES SHORTNESS OF BREATH OR PAIN. THORA-VENT ON LEFT UPPER CHEST CONNECTED TO LOW SUCTION WITH SEROSANGUINEOUS DRAINAGE. PLAN OF CAREA DISCUSSED WITH PATIENT, VERBALIZED UNDERSTANDING. SAFETY CHECKS DONE. CALL LIGHT WITHIN REACH. WILL MONITOR.
[2021-07-24 08:39] LABS: ALBUMIN 4.3 g/dL (3.4-4.8); CALCIUM 9.1 mg/dL (8.4-11.0); CREATININE 0.67 mg/dL (0.55-1.30); TOTAL BILIRUBIN 0.6 mg/dL (0.0-1.0)
[2021-07-24] MEDS ORDERED: ALBUTEROL SULFATE 0.083% 2.5 MG/3 ML VIAL.NEB INH PRN (09:15)
[2021-07-24] MEDS ORDERED: IPRATROPIUM BROM 0.5 MG/2.5 ML VIAL.NEB (ATROVENT) INH PRN (09:15)
--- NOTE | 2021-07-24 10:40 | NUR ---
PAIN PATIENT COMPLAINED OF CHEST PAIN ON THE LEFT UPPER CHEST, DESCRIBED ACHING PAIN, NON-RADIATING. ENCOURAGED DEEP BREATHING EXERCISE. MEDICATED ORDERED, EXPLAINED SIDE EFFECTS AND HE VERBALIZED UNDERSTANDING. SAFETY CHECKS DONE. CALL LIGHT WITHIN REACH.
[2021-07-24 11:05] VITALS: BP_SYST 125
[2021-07-24] MEDS: ALBUTEROL SULFATE 0.083% 2.5 MG/3 ML VIAL.NEB INH SCH ×4 (11:21→23:00)
[2021-07-24] MEDS: IPRATROPIUM BROM 0.5 MG/2.5 ML VIAL.NEB (ATROVENT) INH SCH ×4 (11:21→23:00)
[2021-07-24 12:00] VITALS: BP_SYST 127
--- NOTE | 2021-07-24 14:45 | NUR ---
TRANSFER OF CARE GAVE REPORT TO LIZETH MARQUEZ FOR CONTINUITY OF CARE.
--- NOTE | 2021-07-24 15:00 | NUR ---
received SBAR report from [facility] nurse,pt awake,alert,resting in bed,no c/o pain or discomfort.left side chest tube remains in place with minimal serosanguinously drainage,needs attended,call light & personal items within pt reach,safety maintained.continue to monitor pt.
--- NOTE | 2021-07-24 21:48 | NUR ---
paged dr Lobato for HS sleeping medication for pt.
[2021-07-24] MEDS: ZOLPIDEM TARTRATE 5 MG TABLET PO PRN (23:15)
[2021-07-25 01:27] VITALS: BP_SYST 128
[2021-07-25] MEDS: ALBUTEROL SULFATE 0.083% 2.5 MG/3 ML VIAL.NEB INH SCH ×6 (03:00→22:58)
[2021-07-25] MEDS: IPRATROPIUM BROM 0.5 MG/2.5 ML VIAL.NEB (ATROVENT) INH SCH ×6 (03:00→22:58)
--- NOTE | 2021-07-25 08:00 | NUR ---
maylin notes pt in bed. a/ox4. denies any pain or orther discomfort. pt denies any sob . pt is on ra saturation 97%. chest tube in place connected to low suction. no s/s of air leak noted. not in acute distress .vitals stable.encouraged pt to use call light for help. poc discussed with pt verbalized understanding. bed alarm on. bed locked and in low position. call light within reach. will continue to monitor notes
[2021-07-25 08:29] VITALS: BP_SYST 143
--- NOTE | 2021-07-25 10:42 | NUR ---
Nutrition Update Artur Scale 17 noted. Pt admitted for L pneumothorax. Diet: regular BMI: 21.3 kg/m2 RD to follow per nutrition care standards.
[2021-07-25 12:30] VITALS: BP_SYST 137
--- NOTE | 2021-07-25 12:30 | NUR ---
RPOUNDS PT STABLE NOT IN ACUTE DISTRESS. WALKED TO BATHROOM WITH STEADY GAIT.BACK TO BED CONTINUE WITH CHEST TUBE SUCTION. KEPT COMOFRTABLE.
--- NOTE | 2021-07-25 15:06 | NUR ---
ANXIETY PT ANXIOUS STATED I WANTED TO LEAVE. NO DOCTOR IS TALKING TO ME. CALLED DR ABRAHAM AND DR ABRAHAM CALLED BACK AND TALKING TO PT.CALLED DR NOVAK AND NOTIFIED ABOUT PT CONCERN. NEW ORDER RECEIVED CARRIED OUT Addendum: 07/25/21 at 1531 by Laura Weinberg RN 1515 chest tube suction turned off . pt stable not in acute distress. saturation 97% on ra. denies any sob. will continue to monitor
[2021-07-25] MEDS: LORazepam 1 MG TABLET PO PRN (15:20)
--- NOTE | 2021-07-25 15:22 | NUR ---
pt is little anxious ativan 1 mg po given as ordered. pt felt little better after talking to dr devine and charge nurse leroy. vitals stable not in acute distress needs attended will conitnue to monitor
[2021-07-25 15:26] VITALS: BP_SYST 128
--- NOTE | 2021-07-25 16:50 | NUR ---
rounds pt stable notin acute distress. feeling better. not in res distress. mother at bed side. will continue to monitor
--- NOTE | 2021-07-25 18:42 | NUR ---
closing notes pt stable not in acute distress. denies any pain or orther discomfort.chest xray report not yet available. dr devine to be called once chest xray report available. safety/fall precaution in place. will notify night RN and charge nurse .
--- NOTE | 2021-07-25 19:00 | NUR ---
RECEIVED BEDSIDE REPORT. PT SITING UP IN BED AWAKE. RR EVEN AND UNLABORED ON RA. PT DENIES CHEST PAIN AT THIS TIME. CHEST TUBE DRAINING TO GRAVITY. FAMILY AT BEDSIDE. ALL NEEDS MEET AT THIS TIME. CALL LIGHT WITHIN REACH. WILL CONTINUE TO MONITOR.
[2021-07-25 21:12] VITALS: BP_SYST 126
[2021-07-25] MEDS: ZOLPIDEM TARTRATE 5 MG TABLET PO PRN (23:03)
[2021-07-26] VITALS (7 sets, daily range): BP systolic 122–142
--- NOTE | 2021-07-26 | NUR ---
PT IN BED ASLEEP. PT DOESN'T APPEAR TO BE IN PAIN. CHEST TUBE INTACT WITH SUCTION OFF. WILL CONTINUE TO MONITOR.
[2021-07-26] MEDS: ALBUTEROL SULFATE 0.083% 2.5 MG/3 ML VIAL.NEB INH SCH ×4 (03:00→15:51)
[2021-07-26] MEDS: IPRATROPIUM BROM 0.5 MG/2.5 ML VIAL.NEB (ATROVENT) INH SCH ×4 (03:00→15:51)
--- NOTE | 2021-07-26 05:00 | NUR ---
CHEST TUBE WAS CLAMPED PER ORDERS
--- NOTE | 2021-07-26 07:28 | NUR ---
ENDORSED CARE TO DAY RN. ENDORSED CXR AT NOON AND TO NOTIFY MD OF RESULTS
--- NOTE | 2021-07-26 07:30 | NUR ---
0730: Rec'd pt laying in bed at 0700, resps easy. Pt denies pain. IV noted to R AC- patent. CSMW satisfactory. No headache, dizziness, chest pain, Numbness, tingling, edema, sob or cough. Lungs clear. RA 95%. Chest tube noted to anterior chest wall- Left- no drainage- to gravity- clamped per doctor. BS x4. good appetite. no nausea or vomiting. voiding well. LBM Nov 01/09. No skin concerns. IND with ADL's and mobility. VSS. Med accepting. Will continue to monitor.
--- NOTE | 2021-07-26 11:50 | NUR ---
1150: Bedsice CXR completed- awaiting results 1205: Pt c/o anxiety. See eMAR
[2021-07-26] MEDS: LORazepam 1 MG TABLET PO PRN (12:04)
--- NOTE | 2021-07-26 12:45 | NUR ---
1245: Spoke with Dr. Roa in regards to CXR results- states he will come in an discuss with patient and pull chest tube- no time given. awaiting arrival.
--- NOTE | 2021-07-26 15:50 | NUR ---
1550: Dr. Roa in to see patient. Chest tube pulled. Pt tolerated well. VSS. CXR ordered for in 1 hour then will follow up with PCP to see if pt can be discharged depending on results. Will continue to monitor.
--- NOTE | 2021-07-26 16:30 | NUR ---
1630: Dr. Roa cancelled CXR as he states pt "looks ok and could go home depending what PCP says." 1635: Production Machine Computer Operator paged Dr. Lobato to discuss discharge.
--- NOTE | 2021-07-26 17:17 | NUR ---
1717: Second page to Dr. Wallace by director underwriter sales
--- NOTE | 2021-07-26 17:56 | NUR ---
Dr. Wallace paged for the third time re pt discharge
--- NOTE | 2021-07-26 18:10 | NUR ---
181: Program Management Manager spoke with Dr. Brett Zelaya in regards to pt discharge- ok with discharge. 1844: IV removed. DC instructions provided. x2 dressings provided with instructions to take home with pt. Pt aware to follow up with PCP in 1-2 weeks. All belongings taken home with patient. All questions answered. Pt left walking out of hospital.
== END 2021-07-26 18:10 | disposition home or self-care (01) | DRG 201 ==
LOC: SED 15:22 → STU 19:32
PROVIDERS: ADMIT Internal Medicine Hospice and Palliative Medicine; ATTEND Internal Medicine Hospice and Palliative Medicine
PROC: 0W9B30Z Drainage of Left Pleural Cavity with Drainage Device, Percutaneous Approach (ICD-10-PCS; principal; 2021-07-23)
DX: J93.83 Other pneumothorax (principal); F41.9 Anxiety disorder, unspecified; Z20.822 Contact with and (suspected) exposure to COVID-19; F17.200 Nicotine dependence, unspecified, uncomplicated; Z79.899 Other long term (current) drug therapy
CPT/HCPCS: 36415; 71045; 71250-TC; 76376; 80053; 85025; 93005; 94640; 94760; 96361; 96374; 96375; 96376; 99291; G0378; J2001; J2060; J2270; J7613